=== PATIENT | female | born 1970 | race American Indian/Alaskan Native ===

== ENCOUNTER 2016-06-11 19:16 | Inpatient (IN) | payer MEDICAID ==
--- NOTE | 2016-06-11 19:59 | Emergency Department Report ---
ED Chest Pain HPI - General Chief Complaint: Chest Pain Stated Complaint: CP Time Seen by Provider: 06/11/16 19:44 Source: patient Mode of arrival: Ambulatory Limitations: No Limitations - History of Present Illness Initial Comments: This is a 45-year-old -[place] female who presents to the emergency department by EMS with complaint of chest pain and difficulty swallowing. The patient says she was at [place] today when she began having some midsternal chest pain. This continued but the patient went to another baptism. At the second baptism she tried to eat a sandwich but says that she had trouble swallowing it or it took 5-10 seconds for her to get down. She has a past medical history of HIV, CHF, COPD, insulin-dependent diabetes, hypertension, morbid obesity, and coronary artery disease with ID 3. She says her last heart attack was 5 months ago at a hospital in [place]. She says she had a stress test last but is waiting on the results. She is currently wearing a Holter monitor. She does not have a primary care doctor but has of a government auditor. She cannot her name but says they work in [facility] [place]. She did not take anything for symptoms prior to presentation. When asked that the patient has shortness of breath she says "I always do." She is a former smoker. She denies any illicit drug use. Severity scale (0 -10): 7 - Related Data Home Medications Medication Instructions Recorded Confirmed Last Taken Hydrochlorothiazide [HCTZ] 25 mg PO QDAY 06/16/15 06/11/16 1 Day Ago 25 Lisinopril [Zestril TAB] 40 mg PO QDAY 06/16/15 06/11/16 1 Day Ago 40 amLODIPine [Norvasc] 20 mg PO DAILY 06/16/15 06/11/16 1 Day Ago 10 Previous Rx's Medication Instructions Recorded Last Taken Type Diphenoxylate/Atropine [Lomotil] 1 tab PO QID PRN #20 tablet 06/16/15 1 Day Ago Rx 1 Allergies Allergy/AdvReac Type Severity Reaction Status Date / Time Penicillins Allergy Itching Verified 06/11/16 19:50 [place] score - Ny Score Age > 65: (0) No Aspirin use within the Past 7 Days: (0) No 3 or more CAD Risk Factors: (1) Yes 2 or more Angina events in past 24 hrs: (1) Yes Known CAD with more than 50% Stenosis: (0) No Elevated Cardiac Markers: (0) No ST Deviation Greater than 0.5mm: (0) No [place] Score: 2 ED Review of Systems ROS: Stated complaint: CP Other details as noted in HPI Comment: All other systems reviewed and negative Constitutional: denies: chills, fever Eyes: denies: eye pain, eye discharge, vision change ENT: denies: ear pain, dental pain Respiratory: shortness of breath. denies: cough Cardiovascular: chest pain. denies: edema Gastrointestinal: denies: abdominal pain, nausea, diarrhea Genitourinary: denies: urgency, dysuria, discharge Musculoskeletal: denies: back pain, joint swelling, arthralgia Skin: denies: rash, lesions Neurological: denies: headache, weakness, paresthesias ED Past Medical Hx - Past Medical History Previous Medical History?: Yes Hx Hypertension: Yes Hx Congestive Heart Failure: Yes Hx Diabetes: Yes Hx Asthma: Yes Hx HIV: Yes - Surgical History Past Surgical History?: Yes Additional Surgical History: C-sections X's 3 - Social History Smoking Status: Never Smoker Substance Use Type: None - Medications Home Medications: Home Medications Medication Instructions Recorded Confirmed Last Taken Type Diphenoxylate/Atropine [Lomotil] 1 tab PO QID PRN #20 tablet 06/16/15 06/11/16 1 Day Ago Rx 1 Hydrochlorothiazide [HCTZ] 25 mg PO QDAY 06/16/15 06/11/16 1 Day Ago History 25 Lisinopril [Zestril TAB] 40 mg PO QDAY 06/16/15 06/11/16 1 Day Ago History 40 amLODIPine [Norvasc] 20 mg PO DAILY 06/16/15 06/11/16 1 Day Ago History 10 ED Physical Exam - General Limitations: No Limitations - Other Other exam information: GENERAL: The patient is well-developed well-nourished. HEENT: Normocephalic. Atraumatic. Extraocular motions are intact. Patient has moist mucous membranes. Pupils equal reactive to light bilaterally. NECK: Supple. Trachea is midline. CHEST/LUNGS: Clear to auscultation. There is no respiratory distress noted. Chest pain is not reproducible to palpation of the chest wall. HEART/CARDIOVASCULAR: Regular. There is no tachycardia. There is no gallop rub or murmur. ABDOMEN: Abdomen is soft, nontender. Patient has normal bowel sounds. There is no abdominal distention. Morbidly obese habitus. SKIN: There is no rash. There is no diaphoresis. NEURO: The patient is awake, alert, and oriented. The patient is cooperative. The patient has no focal neurologic deficits. The patient has normal speech and gait. MUSCULOSKELETAL: There is no tenderness or deformity. There is no limitation range of motion. There is no evidence of acute injury.. ED Course Vital Signs 06/11/16 06/11/16 06/11/16 19:43 19:54 19:55 Temperature 98.7 F Pulse Rate 75 71 Respiratory 16 16 18 Rate Blood Pressure 176/73 Blood Pressure 170/82 [Left] O2 Sat by Pulse 98 100 100 Oximetry 06/11/16 06/11/16 06/12/16 21:49 23:00 01:00 Temperature Pulse Rate 73 79 83 Respiratory 21 24 21 Rate Blood Pressure Blood Pressure 152/90 166/80 173/91 [Left] O2 Sat by Pulse 97 97 97 Oximetry ED Medical Decision Making - Lab Data Result diagrams: 06/11/16 20:23 06/11/16 20:23 - EKG Data -: EKG Interpreted by Me EKG shows normal: sinus rhythm, axis (right axis deviation), intervals ( prolongation of QTC), QRS complexes, ST-T waves (T-wave inversions to the inferior leads) Rate: normal - EKG Data When compared to previous EKG there are: previous EKG unavailable Interpretation: other (sinus rhythm, rightward axis, T-wave inversion to the inferior leads, prolongation of QTC) - Radiology Data Radiology results: report reviewed, image reviewed interpreted by me: Chest x-ray does not show any acute process but is a poor image secondary to patient's body habitus. CT angiography of the chest does not show any dissection, aortic aneurysm, pulmonary embolism. There is mediastinal and hilar lymphadenopathy. There is suboptimal inspiration. There is mild pulmonary edema. There are no infiltrates. There are no effusions or pneumothoraces. No gallstones seen. - Medical Decision Making 45-year-old female presents the emergency department with complaint of left- sided chest pain and some shortness breath. Patient has the risk factors of morbid obesity, coronary artery disease with previous ID, hypertension, high cholesterol and diabetes. She is currently wearing a Holter monitor and recently had a stress test but has not been told of the results yet to know that it is negative. Patient's labs have been mostly unremarkable except for a elevated and equivocal d-dimer. So far negative troponins 2. BMP does not show signs of congestive heart failure. EKG shows rightward axis, sinus rhythm , T-wave inversions inferior leads and prolongation of QTC but no ST elevation ID. CT angiography of the chest was done that did not show any pulmonary embolism. There is some mediastinal lymphadenopathy but no masses. No pneumonia or pleural effusions. No pericardial effusion. Patient is still having some discomfort although it is improved. Given aspirin and some morphine for her discomfort. Patient will be admitted to hospital for further evaluation is been accepted for admission by the hospitalist, Dr. Clarke. - Differential Diagnosis ID, PE, CHF, pneumonia Critical Care Time: No Critical care attestation.: If time is entered above; I have spent that time in minutes in the direct care of this critically ill patient, excluding procedure time. ED Disposition Clinical Impression: History of coronary artery disease Hypertension Qualifiers: Hypertension type: essential hypertension Qualified Code(s): I10 - Essential ( primary) hypertension Chest pain Qualifiers: Chest pain type: unspecified Qualified Code(s): R07.9 - Chest pain, unspecified Dyspnea Qualifiers: Dyspnea type: unspecified Qualified Code(s): R06.00 - Dyspnea, unspecified Diabetes mellitus Qualifiers: Diabetes mellitus type: type 2 Diabetes mellitus complication status: with hyperglycemia Morbid obesity Qualifiers: Obesity type: unspecified obesity type Qualified Code(s): E66.01 - Morbid ( severe) obesity due to excess calories Disposition: OP ADMITTED IP TO THIS HOSP Is pt being admited?: Yes Does the pt Need Aspirin: Yes Condition: Stable Instructions: Hypertension (ED), Chest Pain (ED), Diabetes Mellitus Type 2 in Adults (ED) Time of Disposition: 01:47
[2016-06-11 21:11] LABS: Basophils % (Auto) 0.6 % (0.0-1.8); Eosinophils % (Auto) 2.7 % (0.0-4.3); Hematocrit 34.7 % (30.3-42.9); Hemoglobin 10.7 gm/dl (10.1-14.3); Mean Corpuscular HGB Conc 31 % (30-34); Mean Corpuscular Volume 73 fl (79-97); Platelet Count 442 K/mm3 (140-440); Red Blood Count 4.77 M/mm3 (3.65-5.03); Red Cell Distribution Width 17.4 % (13.2-15.2); White Blood Count 8.7 K/mm3 (4.5-11.0)
[2016-06-11 21:12] LABS: Mean Corpuscular Hemoglobin 23 pg (28-32)
[2016-06-11 21:31] LABS: Blood Urea Nitrogen 14 mg/dL (7-17); Carbon Dioxide 28 mmol/L (22-30); Chloride 98.3 mmol/L (98-107); Glucose 154 mg/dL (65-100); Potassium 3.3 mmol/L (3.6-5.0); Sodium 139 mmol/L (137-145)
[2016-06-11 21:42] LABS: Anion Gap 16 mmol/L
[2016-06-11] MEDS ORDERED: K-DUR PO ONE (22:12)
[2016-06-12] MEDS ORDERED: NACL ONE (00:28)
--- NOTE | 2016-06-12 01:35 | Cat Scan Report ---
FINAL REPORT PROCEDURE: CT ANGIO CHEST TECHNIQUE: Computerized tomographic angiography of the chest was performed after the IV injection of iodinated nonionic contrast including image processing. The image data was postprocessed using 2-dimensional multiplanar reformatted (MPR) and 3-dimensional (MIP and/or volume rendered) techniques. HISTORY: CP, elevated dimer COMPARISON: No prior studies are available for comparison. FINDINGS: Heart and pericardium: Heart is enlarged. There is no pericardial effusion.. Thoracic aorta: There is no thoracic aortic aneurysm or dissection.. Pulmonary vasculature: There is no pulmonary embolism.. Lymph nodes: There is mediastinal and hilar lymphadenopathy.. Lungs: There is suboptimal inspiration. There is mild pulmonary edema. There are no infiltrates.. Pleural space: There are no effusions or pneumothoraces.. Musculoskeletal structures: No significant abnormality. Upper abdominal structures: There are gallstones.. IMPRESSION: Heart is enlarged. There is no pericardial effusion.. There is no thoracic aortic aneurysm or dissection.. There is no pulmonary embolism.. There is mediastinal and hilar lymphadenopathy.. There is suboptimal inspiration. There is mild pulmonary edema. There are no infiltrates.. There are no effusions or pneumothoraces.. There are gallstones..
[2016-06-12] MEDS ORDERED: MORPHINE IV ONE (01:44)
[2016-06-12] MEDS ORDERED: BABY ASPIRIN PO ONE (01:45)
--- NOTE | 2016-06-12 03:29 | History and Physical Report ---
History of Present Illness Date of examination: 06/12/16 Date of admission: 06/12/16 02:38 History of present illness: 45-year-old woman history of hypertension, diabetes, CHF, HIV, COPD, obesity, recent MD comes emergency room with complaints of chest pain was started yesterday. Pain is in the upper chest which she is unable to describe, constant , intensity 5/10, cannot identify exacerbating or relieving factors. She admits to shortness of breath, no nausea vomiting, diaphoresis or palpitation. She had a stress test done on with her sustainability project coordinator, she does not know the results Patient denies cough, abdominal pain, hematochezia, dysuria, frequency, focal weakness, dysarthria, fever chills, polydipsia polyuria, hot or cold intolerance , easy bruisability, or rash or bleeding from mucosal membrane, rhinorrhea, epistaxis, earache, tinnitus, blurry vision, eye discharge, anxiety, depression. Other review of systems negative PAST SURGICAL HISTORY: 2 SOCIAL HISTORY: Denies alcohol, tobacco, drugs FAMILY HISTORY: Hypertension, diabetes Medications and Allergies Allergies Allergy/AdvReac Type Severity Reaction Status Date / Time Penicillins Allergy Itching Verified 06/11/16 19:50 Home Medications Medication Instructions Recorded Confirmed Last Taken Type Diphenoxylate/Atropine [Lomotil] 1 tab PO QID PRN #20 tablet 06/16/15 06/11/16 1 Day Ago Rx 1 Hydrochlorothiazide [HCTZ] 25 mg PO QDAY 06/16/15 06/11/16 1 Day Ago History 25 Lisinopril [Zestril TAB] 40 mg PO QDAY 06/16/15 06/11/16 1 Day Ago History 40 amLODIPine [Norvasc] 20 mg PO DAILY 06/16/15 06/11/16 1 Day Ago History 10 Exam - Physical Exam Narrative exam: Gen. appearance: Patient lying in bed, no apparent distress HEENT: Normocephalic, atraumatic, pupils equally round and reactive to light, extraocular movement intact, and no sclericterus,. No JVD or thyromegaly or nodule,neck supple, no carotid bruit ,mucous membranes moist, no exudate or erythema Heart: S1, S2, regular rate and rhythm Lungs: Clear to auscultation bilaterally, breathing comfortable Abdomen: Positive bowel sounds, nontender, nondistended, no organomegaly Extremity: No edema, cyanosis, clubbing Skin: No rash, nodules, warm, dry Neuro: Oriented 3, cranial nerves II-12 intact, speech is fluent, motor and sensory intact - Constitutional Vitals: Temp Pulse Resp BP Pulse Ox 98.7 F 83 21 173/91 97 06/11/16 19:43 06/12/16 01:00 06/12/16 01:00 06/12/16 01:00 06/12/16 01:00 Results - Labs CBC & Chem 7: 06/11/16 20:23 06/11/16 20:23 - Imaging and Cardiology EKG: image reviewed Chest x-ray: image reviewed CT scan - chest: report reviewed Assessment and Plan Unstable angina Coronary artery disease Hypertension Diabetes type 2 COPD CHF, stable HIV Morbid obesity Admits medicine Check cardiac enzymes, consult cardiology Continue outpatient medications Obtain records from sustainability project coordinator Start Dvt prophylaxis
[2016-06-12] MEDS ORDERED: BABY ASPIRIN ONE (04:01)
[2016-06-12] MEDS ORDERED: DULCOLAX PR PRN (08:29)
[2016-06-12] MEDS ORDERED: TYLENOL PO PRN (08:29)
[2016-06-12] MEDS ORDERED: MILK OF MAGNESIA PO PRN (08:29)
[2016-06-12] MEDS ORDERED: ZOFRAN IV PRN (08:29)
[2016-06-12] MEDS ORDERED: MORPHINE IV PRN (08:29)
--- NOTE | 2016-06-12 08:47 | XRay Report ---
Portable AP chest: There is enlargement of the cardiac contour. There is no obvious vascular congestion and the lungs are clear of any overt infiltrate or nodule. No prior study for comparison. Impression: Cardiomegaly.
[2016-06-12] MEDS ORDERED: LOVENOX SUB-Q SCH (10:00)
--- NOTE | 2016-06-12 10:08 | Progress Note ---
Assessment and Plan - Patient Problems (1) Chest pain Current Visit: Yes Status: Acute Qualifiers: Chest pain type: unspecified Qualified Code(s): R07.9 - Chest pain, unspecified Plan to address problem: Patient admitted with chest pain. Troponin 2 negative. Awaiting cardiology input (2) Hypertension Current Visit: Yes Status: Acute Qualifiers: Hypertension type: essential hypertension Qualified Code(s): I10 - Essential (primary) hypertension Plan to address problem: Continue current management. Continue amlodipine (3) Elevated d-dimer Current Visit: Yes Status: Acute Plan to address problem: Patient had CTA of the chest that was normal History Interval history: Patient awake alert in bed with no pain Hospitalist Physical - Constitutional Vitals: Temp Pulse Resp BP Pulse Ox 98.5 F 70 20 171/92 98 06/12/16 09:55 06/12/16 09:55 06/12/16 09:55 06/12/16 09:55 06/12/16 09:55 General appearance: Present: no acute distress - EENT Eyes: Present: PERRL, EOM intact ENT: hearing intact, clear oral mucosa - Neck Neck: Present: supple, normal ROM - Respiratory Respiratory effort: normal Respiratory: bilateral: CTA - Cardiovascular Rhythm: regular Heart Sounds: Present: S1 & S2 - Abdominal General gastrointestinal: soft, non-tender, non-distended, normal bowel sounds - Psychiatric Psychiatric: appropriate mood/affect, intact judgment & insight - Neurologic Neurologic: CNII-XII intact, moves all extremities Results - Labs CBC & Chem 7: 06/11/16 20:23 06/11/16 20:23 Labs: Laboratory Last Values WBC 8.7 K/mm3 (4.5-11.0) 06/11/16 20:23 RBC 4.77 M/mm3 (3.65-5.03) 06/11/16 20:23 Hgb 10.7 gm/dl (10.1-14.3) 06/11/16 20:23 Hct 34.7 % (30.3-42.9) 06/11/16 20:23 MCV 73 fl (79-97) L 06/11/16 20:23 MCH 23 pg (28-32) L 06/11/16 20:23 MCHC 31 % (30-34) 06/11/16 20:23 RDW 17.4 % (13.2-15.2) H 06/11/16 20:23 Plt Count 442 K/mm3 (140-440) H 06/11/16 20:23 Lymph % (Auto) 26.3 % (13.4-35.0) 06/11/16 20:23 [place] % (Auto) 5.4 % (0.0-7.3) 06/11/16 20:23 Eos % (Auto) 2.7 % (0.0-4.3) 06/11/16 20:23 Baso % (Auto) 0.6 % (0.0-1.8) 06/11/16 20:23 Lymph # 2.3 K/mm3 (1.2-5.4) 06/11/16 20:23 [place] # 0.5 K/mm3 (0.0-0.8) 06/11/16 20:23 Eos # 0.2 K/mm3 (0.0-0.4) 06/11/16 20: Baso # 0.1 K/mm3 (0.0-0.1) 06/11/16 20:23 Seg Neutrophils % 65.0 % (40.0-70.0) 06/11/16 20:23 Seg Neutrophils # 5.7 K/mm3 (1.8-7.7) 06/11/16 20:23 D-Dimer 329.25 ng/mlDDU (0-234) H 06/11/16 23:03 Sodium 139 mmol/L (137-145) 06/11/16 20:23 Potassium 3.3 mmol/L (3.6-5.0) L 06/11/16 20:23 Chloride 98.3 mmol/L (98-107) 06/11/16 20:23 Carbon Dioxide 28 mmol/L (22-30) 06/11/16 20:23 Anion Gap 16 mmol/L 06/11/16 20:23 BUN 14 mg/dL (7-17) 06/11/16 20:23 Creatinine 0.8 mg/dL (0.7-1.2) 06/11/16 20:23 Estimated GFR > 60 ml/min 06/11/16 20:23 BUN/Creatinine Ratio 17.50 % 06/11/16 20:23 Glucose 154 mg/dL (65-100) H 06/11/16 20:23 Calcium 9.0 mg/dL (8.4-10.2) 06/11/16 20:23 Troponin T < 0.010 ng/mL (0.00-0.029) 06/12/16 01:50 NT-Pro-B Natriuret Pep 339.0 pg/mL (0-450) 06/11/16 20:23
[2016-06-12] MEDS: LOVENOX SUB-Q SCH (11:10)
[2016-06-12] MEDS: NORVASC PO SCH (11:11)
[2016-06-12] MEDS: ZESTRIL PO SCH (11:12)
[2016-06-12] MEDS: HCTZ PO SCH (11:13)
--- NOTE | 2016-06-12 14:33 | Consultation ---
History of Present Illness Consult date: 06/12/16 Consult reason: chest pain History of present illness: 45-year-old woman who presents to the hospital with chest pain. Her chest pain is atypical, sensation of pins sticking to her chest wall. There is no exertional component, and no associated features. She is currently undergoing workup for chest pain and palpitations as an outpatient on the orders of her primary district manager major accounts sales who is located [facility]. She had a stress test there last week, and is currently on extended event monitoring. Workup here so far, is benign, with negative EKG and negative cardiac enzymes. Past History Past Medical History: HIV/AIDS, hypertension Medications and Allergies Allergies Allergy/AdvReac Type Severity Reaction Status Date / Time Penicillins Allergy Itching Verified 06/11/16 19:50 Home Medications Medication Instructions Recorded Confirmed Last Taken Type Diphenoxylate/Atropine [Lomotil] 1 tab PO QID PRN #20 tablet 06/16/15 06/11/16 1 Day Ago Rx 1 Hydrochlorothiazide [HCTZ] 25 mg PO QDAY 06/16/15 06/11/16 1 Day Ago History 25 Lisinopril [Zestril TAB] 40 mg PO QDAY 06/16/15 06/11/16 1 Day Ago History 40 amLODIPine [Norvasc] 20 mg PO DAILY 06/16/15 06/11/16 1 Day Ago History 10 Active Meds: Active Medications Acetaminophen (Tylenol) 650 mg PO Q4H PRN PRN Reason: Pain MILD(1-3)/Fever >100.5/LING Amlodipine Besylate (Norvasc) 20 mg PO DAILY [facility] Last Admin: 06/12/16 11:11 Dose: 20 mg Bisacodyl (Dulcolax) 10 mg NC QDAY PRN PRN Reason: Constipation unrelieved by MOM Enoxaparin Sodium (Lovenox) 40 mg SUB-Q QDAY@1000 [facility] Last Admin: 06/12/16 11:10 Dose: 40 mg Hydrochlorothiazide (Hctz) 25 mg PO QDAY [facility] Last Admin: 06/12/16 11:13 Dose: 25 mg Lisinopril (Zestril) 40 mg PO QDAY [facility] Last Admin: 06/12/16 11:12 Dose: 40 mg Magnesium Hydroxide (Milk Of Magnesia) 30 ml PO Q4H PRN PRN Reason: Constipation Morphine Sulfate (Morphine) 2 mg IV Q4H PRN PRN Reason: Pain, Moderate (4-6) Ondansetron HCl (Zofran) 4 mg IV Q8H PRN PRN Reason: N/V unrelieved by Reglan Review of Systems Cardiovascular: chest pain, palpitations, no orthopnea, no rapid/irregular heart beat, no edema, no syncope, no lightheadedness, no shortness of breath Physical Examination Vital Signs Temp Pulse Resp BP Pulse Ox 98.7 F 75 16 176/73 98 06/11/16 19:43 06/11/16 19:43 06/11/16 19:43 06/11/16 19:43 06/11/16 19:43 General appearance: no acute distress HEENT: Positive: PERRL Neck: Positive: neck supple Cardiac: Positive: Reg Rate and Rhythm Lungs: Positive: Decreased Breath Sounds Neuro: Positive: Grossly Intact Abdomen: Positive: Soft Female genitourinary: deferred Skin: Positive: Clear Extremities: Absent: edema Results 06/11/16 20:23 06/11/16 20:23 EKG interpretations - Telemetry EKG Rhythm: Sinus Rhythm Assessment and Plan - Patient Problems (1) Chest pain Current Visit: Yes Status: Acute Qualifiers: Chest pain type: unspecified Qualified Code(s): R07.9 - Chest pain, unspecified Plan to address problem: Chest pain is atypical, ECG and cardiac enzymes are negative. Recommend uptake in the report of recent outpatient stress test, and if negative , no further cardiac workup is indicated for atypical chest pain.
[2016-06-12] MEDS ORDERED: FLUARIX QUAD 2016-2017(36 MOS+) IM ONE (16:16)
--- NOTE | 2016-06-13 08:38 | Admit Criteria Form ---
Admission Criteria Documentation: CHEST PAIN Clinical Indications for Admission to Inpatient Care (Place 'X' for any and all applicable criteria): Admission is indicated for chest pain and ANY ONE of the following(1)(2)(3)(4)(5 ): [ ]I. Angina with acute coronary syndrome (Also use Myocardial Infarction or Angina guideline) [ ]II. Hemodynamic instability [X ]III. Angina needing acute intervention as indicated by ALL of the following (11)(12): [X ]a) Unstable angina is present as indicated by angina that is ANY ONE of the following: [ ]i) New onset [ ]ii) Nocturnal [X ]iii) Prolonged at rest [ ]iv) Progressive [X ]b) Angina warrants acute intervention as indicated by ANY ONE of the following: [ ]i) Recurrent angina (e.g, not responding as previously to treatment) [X ]ii) Angina at rest or with low-level activities despite initial medical therapy [ ]iii) New or presumably new ST-segment depression on ECG [ ]iv) Signs or symptoms of heart failure (eg, dyspnea, pulmonary edema) [ ]v) New or worsening mitral regurgitation [ ]vi) Hemodynamic instability [ ]vii) Dangerous arrhythmia (eg, sustained ventricular tachycardia) [ ]viii) History of percutaneous coronary intervention within 6 months [ ]ix) History of coronary artery bypass graft surgery [X]x) [place] risk score of 2 or greater[A] [X]xi) History of Diabetes(14) [ ]xii) High-risk cardiac ischemia findings on noninvasive testing (e.g, echocardiogram, treadmill testing, nuclear scan) [ ]xiii) Chronic renal insufficiency (ie, estimated GFR less than 60 mL/min/1.732m) [ ]xiv) Left ventricular ejection fraction less than 40% [ ]IV. Evidence of NE (eg, cardiac biomarkers positive, ST-segment elevation on ECG) also use Myocardial Infarction Criteria Form. [ ]V. Pulmonary edema [ ]. Respiratory distress [ ]VII. Chest pain indicative of serious diagnosis other than coronary artery disease (eg, aortic dissection) [ ]VIII. Contraindications and/or Inappropriate clinical situations for Observational Care in patients with Chest Pain, when ANY ONE of the following is required: [ ]a) Patient with risk factor for pulmonary embolism, acute coronary syndrome and myocardial infarction (18) [ ]b) Patient with Pulmonary embolism require an average LOS of 4.3 days, therefore emergency department observation management is inappropriate 18,23 [ ]c) Painful condition/s in the elderly, have the highest rate of recidivism after emergency department observation management (10.8%) 20,21,22 [ ]d) Elevated cardiac biomarker requires intensive and exhaustive care (19) [ ]IX. General contraindications and/or Inappropriate clinical situations for Observational Care in patients with Chest Pain, when ANY ONE of the following is required: [ ]a) Prediction of prolongation of LOS based on ANY ONE of the following may be considered as a contraindication for observational care 2, 3, 4, 5, 6, 7, 8, 9, 10, 11 [ ]i) Age > 65 yrs. [ ]ii) Patient arriving by ambulance [ ]iii) Patient with high acuity [ ]iv) Patient requiring vital sign monitoring [ ]v) Patient on IV medication [ ]b) Systolic blood pressures 180mmHg 3,12 [ ]c) Patient with altered mental status including delirium and other alteration of consciousness, (3) [ ]d) Patient whose discharge disposition will be to a jail home or rehabilitation home should not be managed in Emergency Department Observation Unit. CMS rule requires 3 days hospital stay before such placement. 3,13 [ ]e) Patient with failure to thrive due to broad array of etiologies 3,16,17 [ ]f) Inability to ambulate 3,14 Extended stay beyond goal length of stay may be needed for (1)(28): [ ]a) Specific condition diagnosed after evaluation (eg, pulmonary embolism, aortic dissection) [ ]b) Unstable angina [ ]c) Continued suspicion of acute coronary syndrome with inability to complete needed cardiac evaluation (eg, patient clinically unable to undergo stress testing) [ ]d) Myocardial infarction (Contents from ANGINA and CHEST PAIN clinical indications for admission to inpatient care have been integrated in this form) The original [employer] content created by [employer] has been revised. The portions of the content which have been revised are identified through the use of italic text or in bold, and [employer] has neither reviewed nor approved the modified material. All other unmodified content is copyright [employer]. Please see references footnoted in the original [employer] edition 2016 Admission Criteria Met: Yes
[2016-06-13 08:55] LABS: Basophils % (Auto) 0.9 % (0.0-1.8); Eosinophils % (Auto) 4.5 % (0.0-4.3); Hematocrit 34.3 % (30.3-42.9); Hemoglobin 10.7 gm/dl (10.1-14.3); Mean Corpuscular HGB Conc 31 % (30-34); Mean Corpuscular Volume 73 fl (79-97); Platelet Count 442 K/mm3 (140-440); Red Blood Count 4.71 M/mm3 (3.65-5.03); Red Cell Distribution Width 17.4 % (13.2-15.2); White Blood Count 6.8 K/mm3 (4.5-11.0)
[2016-06-13 09:06] LABS: Mean Corpuscular Hemoglobin 23 pg (28-32)
[2016-06-13 09:08] LABS: Alanine Aminotransferase 12 units/L (7-56); Albumin 3.6 g/dL (3.9-5); Albumin/Globulin Ratio 0.8 %; Alkaline Phosphatase 81 units/L (35-129); Anion Gap 15 mmol/L; BUN/Creatinine Ratio 13.33; Bilirubin,Total 0.3 mg/dL (0.1-1.2); Blood Urea Nitrogen 12 mg/dL (7-17); Calcium 9.2 mg/dL (8.4-10.2); Carbon Dioxide 29 mmol/L (22-30); Chloride 94.7 mmol/L (98-107); Glucose 144 mg/dL (65-100); Potassium 3.8 mmol/L (3.6-5.0); Sodium 135 mmol/L (137-145)
[2016-06-13] MEDS: ZESTRIL PO SCH (10:51)
[2016-06-13] MEDS: LOVENOX SUB-Q SCH (10:51)
[2016-06-13] MEDS: HCTZ PO SCH (10:56)
[2016-06-13] MEDS: NORVASC PO SCH (10:57)
--- NOTE | 2016-06-13 11:23 | Discharge Summary ---
Providers - Providers Date of Admission: 06/12/16 02:38 Date of discharge: 06/13/16 Attending physician: MAGUE VALENCIA 06/12/16 08:29 Consult to Physician [CONS] Routine Consulting Provider: WM WINCHESTER Reason For Exam: cp Notified:: traveling secretary pl call Primary care physician: [employer] Hospitalization Reason for admission: atypical chest pain Condition: Stable Pertinent studies: CTA of the chest-no PE Hospital course: Miss Solorio is a 45-year-old female who presented to the emergency room with atypical chest pain. Acute myocardial infarction was ruled out based on negative cardiac enzymes. Her chest pain resolved prior to discharge. It was felt that she had costochondritis. Her stress test obtained done last week, started was negative. She was seen by the tank officer and cleared for discharge. Disposition: DISCHARGED TO HOME OR SELFCARE Time spent for discharge: 31 minutes - Discharge Diagnoses (1) Chest pain Status: Acute Qualifiers: Chest pain type: unspecified Qualified Code(s): R07.9 - Chest pain, unspecified (2) History of coronary artery disease Status: Chronic (3) Hypertension Status: Chronic Qualifiers: Hypertension type: essential hypertension Qualified Code(s): I10 - Essential (primary) hypertension (4) Costochondral chest pain Status: Acute Core Measure Documentation - Palliative Care Palliative Care/ Comfort Measures: Not Applicable - Core Measures Any of the following diagnoses?: none Exam - Constitutional Vitals: Temp Pulse Resp BP Pulse Ox 98.2 F 60 20 148/79 94 06/13/16 09:25 06/13/16 10:57 06/13/16 09:25 06/13/16 10:57 06/13/16 09:25 General appearance: Present: no acute distress, well-nourished, obese (morbid) - EENT Eyes: Present: PERRL, EOM intact. Absent: scleral icterus, conjunctival injection ENT: hearing intact, clear oral mucosa, no oropharyngeal erythema, no poor dentition - Neck Neck: Present: supple, normal ROM. Absent: enlarged thyroid, masses or JVD - Respiratory Respiratory effort: normal, other (costochondral tenderness ) Respiratory: negative: diminished, rales, rhonchi, wheezing - Cardiovascular Rhythm: regular Heart Sounds: Present: S1 & S2. Absent: gallop - Extremities Extremities: no ischemia, pulses intact, pulses symmetrical, No edema - Abdominal General gastrointestinal: Present: soft, non-tender, non-distended, normal bowel sounds - Rectal Rectal Exam: deferred - Integumentary Integumentary: Present: clear - Musculoskeletal Musculoskeletal: strength equal bilaterally - Psychiatric Psychiatric: appropriate mood/affect, intact judgment & insight, cooperative - Neurologic Neurologic: CNII-XII intact, moves all extremities Plan Activity: no restrictions Diet: low fat, low cholesterol, low salt Additional Instructions: Follow-up with tank officer as an outpatient Follow up with: PRIMARY CARE, [Primary Care Provider] - 3-5 Days
[2016-06-13 12:40] VITALS: BP 123/88
--- NOTE | 2016-06-13 13:58 | Progress Note ---
Assessment and Plan - Patient Problems (1) Chest pain Current Visit: Yes Status: Acute Qualifiers: Qualified Code(s): R07.9 - Chest pain, unspecified Plan to address problem: atypical Persantine stress thallium done 1wk ago at [facility], reports no ischemia No further cardiac workup indicated. Ok, cardiac mackenzie, for discharge home. F/U with primary community board member within 1wk. Subjective Date of service: 06/13/16 Interval history: Patient denies chest pain. Wants to go home. Objective Vital Signs Temp Pulse Pulse Pulse Pulse Resp BP 06/13/16 12:39 98.4 F 75 20 06/13/16 10:57 60 148/79 06/13/16 10:51 60 148/79 06/13/16 10:00 06/13/16 09:25 98.2 F 64 20 06/13/16 04:00 98.5 F 60 18 06/13/16 01:17 64 06/13/16 00:15 98.4 F 63 65 69 20 06/12/16 20:00 98.2 F 65 18 06/12/16 17:52 98.2 F 67 20 BP Pulse Ox 06/13/16 12:39 123/88 97 06/13/16 10:57 06/13/16 10:51 06/13/16 10:00 97 06/13/16 09:25 144/81 94 06/13/16 04:00 148/79 98 06/13/16 01:17 06/13/16 00:15 122/57 98 06/12/16 20:00 152/83 97 06/12/16 17:52 133/89 96 - Physical Examination General: No Apparent Distress HEENT: Positive: PERRL Neck: Positive: neck supple Cardiac: Positive: Reg Rate and Rhythm Lungs: Positive: Decreased Breath Sounds Neuro: Positive: Grossly Intact Extremities: Absent: edema - Labs and Meds Cardiac Enzymes 06/13/16 Range/Units 08:28 AST 12 (5-40) units/L CBC 06/13/16 Range/Units 08:28 WBC 6.8 (4.5-11.0) K/mm3 RBC 4.71 (3.65-5.03) M/mm3 Hgb 10.7 (10.1-14.3) gm/dl Hct 34.3 (30.3-42.9) % Plt Count 442 H (140-440) K/mm3 Lymph # 2.6 (1.2-5.4) K/mm3 [place] # 0.5 (0.0-0.8) K/mm3 Eos # 0.3 (0.0-0.4) K/mm3 Baso # 0.1 (0.0-0.1) K/mm3 Comprehensive Metabolic Panel 06/13/16 Range/Units 08:28 Sodium 135 L (137-145) mmol/L Potassium 3.8 (3.6-5.0) mmol/L Chloride 94.7 L (98-107) mmol/L Carbon Dioxide 29 (22-30) mmol/L BUN 12 (7-17) mg/dL Creatinine 0.9 (0.7-1.2) mg/dL Glucose 144 H (65-100) mg/dL Calcium 9.2 (8.4-10.2) mg/dL AST 12 (5-40) units/L ALT 12 (7-56) units/L Alkaline Phosphatase 81 (35-129) units/L Total Protein 8.0 (6.3-8.2) g/dL Albumin 3.6 L (3.9-5) g/dL - Imaging and Cardiology EKG: image reviewed
[2016-06-13] MEDS ORDERED: FLUARIX QUAD 2016-2017(36 MOS+) IM ONE (15:00)
== END 2016-06-13 15:40 | disposition home or self-care (01) | DRG 205 ==
LOC: ED 19:16 → 4A 06-12 02:38
PROVIDERS: ADMIT Internal Medicine; ATTEND Hospitalist
DX: M94.0 Chondrocostal junction syndrome [Tietze] (principal); B20 Human immunodeficiency virus [HIV] disease; E66.01 Morbid (severe) obesity due to excess calories; J44.9 Chronic obstructive pulmonary disease, unspecified; I11.0 Hypertensive heart disease with heart failure; I50.9 Heart failure, unspecified; I25.110 Atherosclerotic heart disease of native coronary artery with unstable angina pectoris; E11.9 Type 2 diabetes mellitus without complications; J45.909 Unspecified asthma, uncomplicated; Z98.891 History of uterine scar from previous surgery; Z83.3 Family history of diabetes mellitus; Z82.49 Family history of ischemic heart disease and other diseases of the circulatory system; Z68.44 Body mass index [BMI] 60.0-69.9, adult; Z88.0 Allergy status to penicillin
CPT/HCPCS: 36415; 71010; 71275; 80048; 80053; 82962; 83880; 84484; 85025; 85379; 90686; 93005; 93010; J1650; Q9967

== ENCOUNTER 2017-04-13 07:17 | Emergency (ER) | payer MEDICAID, SELFPAY ==
[2017-04-13 07:53] LABS: Basophils % (Auto) 1.1 % (0.0-1.8); Eosinophils % (Auto) 0.2 % (0.0-4.3); Hematocrit 36.2 % (30.3-42.9); Hemoglobin 11.7 gm/dl (10.1-14.3); Mean Corpuscular HGB Conc 32 % (30-34); Mean Corpuscular Hemoglobin 23 pg (28-32); Mean Corpuscular Volume 72 fl (79-97); Platelet Count 337 K/mm3 (140-440); Red Cell Distribution Width 17.9 % (13.2-15.2); White Blood Count 12.2 K/mm3 (4.5-11.0)
[2017-04-13 08:08] LABS: Anion Gap 19 mmol/L; BUN/Creatinine Ratio 12; Blood Urea Nitrogen 11 mg/dL (7-17); Carbon Dioxide 24 mmol/L (22-30); Chloride 101.3 mmol/L (98-107); Glucose 156 mg/dL (65-100); Potassium 3.3 mmol/L (3.6-5.0); Sodium 141 mmol/L (137-145)
[2017-04-13] MEDS ORDERED: NITROSTAT SL ONE ×2 (08:10→11:45)
[2017-04-13] MEDS ORDERED: TYLENOL PO ONE (08:10)
[2017-04-13] MEDS ORDERED: BABY ASPIRIN PO ONE (08:10)
[2017-04-13] MEDS ORDERED: NACL 0.9% 500 ML 500 ML IV ONE (08:10)
[2017-04-13 08:24] VITALS: BP 133/66
--- NOTE | 2017-04-13 08:26 | XRay Report ---
AP CHEST: HISTORY: chest pain Compared to 09/26/16. There is significant improvement in CHF since the previous exam. Mild cardiomegaly and central pulmonary venous congestion persists on today's exam. No evidence for consolidation, pleural effusion or pneumothorax. IMPRESSION: Cardiomegaly and pulmonary venous congestion but no CHF.
[2017-04-13] MEDS ORDERED: TYLENOL #3 PO ONE (11:45)
--- NOTE | 2017-04-13 11:51 | Emergency Department Report ---
HPI - General Chief Complaint: Chest Pain Time Seen by Provider: 04/13/17 07:56 - HPI HPI: The patient a 46-year-old female presents for evaluation of chest pain. The patient reports right chest pain for the past one week, constant since last night, 8 hours prior to my evaluation, 8/10 in severity, sharp in quality. The patient denies fever, trauma to the chest wall, cough, dyspnea, hemoptysis, unilateral leg swelling, oral contraceptive use, recent immobilization, history of DVT or PE, recent cancer. ED Past Medical Hx - Past Medical History Previous Medical History?: Yes Hx Hypertension: Yes Hx Congestive Heart Failure: Yes Hx Diabetes: Yes Hx Psychiatric Treatment: Yes (bi-polar) Hx Asthma: Yes Hx HIV: Yes - Surgical History Past Surgical History?: Yes Additional Surgical History: C-sections X's 3 - Social History Smoking Status: Current Every Day Smoker Substance Use Type: Cocaine - Medications Home Medications: Home Medications Medication Instructions Recorded Confirmed Last Taken Type Elviteg/Cob/Emtri/Tenofo Disop 1 each PO DAILY 09/26/16 09/26/16 09/25/16 History [Stribild Tablet] Hydrochlorothiazide [HCTZ] 25 mg PO QDAY #30 tablet 09/28/16 Unknown Rx amLODIPine [Norvasc] 20 mg PO DAILY #30 tablet 09/28/16 Unknown Rx ED Review of Systems ROS: Stated complaint: CHEST PAIN Other details as noted in HPI Constitutional: denies: fever ENT: denies: throat or neck pain Respiratory: denies: cough reports shortness of breath Cardiovascular: denies: chest pain Endocrine: denies unexplained weight loss or gain Gastrointestinal: denies: abdominal pain, nausea Genitourinary: denies: dysuria Musculoskeletal: denies: leg swelling Skin: denies: rash Neurological: denies: headache Hematological/Lymphatic: denies: easy bleeding or easy bruising Psych: denies sadness or hopelessness Physical Exam - Physical Exam Vital Signs: Vital Signs 04/13/17 04/13/17 04/13/17 07:45 08:24 10:08 Temperature 98.7 F Pulse Rate 83 Respiratory 29 H 29 H 18 Rate Blood Pressure 133/66 [Left] O2 Sat by Pulse 97 97 Oximetry Physical Exam: General: well-nourished, well-developed, no acute distress Head: Normocephalic, atraumatic Eyes: normal sclera ENT: Mucous membranes are pale and dry Neck: No neck stiffness, no cervical adenopathy Respiratory: Breath sounds equal bilaterally, no wheezing, rales, or rhonchi Cardio: S1 and S2 present, no murmurs, rubs, gallops, capillary refill is delayed Abdomen: Normoactive bowel sounds, soft abdomen, no rigidity, no guarding or rebound tenderness Chest WALL/Back: No tenderness to palpation of the chest wall, no CVA tenderness with percussion Musc: No pitting edema Skin: No rash Neuro: no facial drooping, normal speech Psych: Normal affect ED Course Vital Signs 04/13/17 04/13/17 04/13/17 07:45 08:24 10:08 Temperature 98.7 F Pulse Rate 83 Respiratory 29 H 29 H 18 Rate Blood Pressure 133/66 [Left] O2 Sat by Pulse 97 97 Oximetry ED Medical Decision Making - Lab Data Result diagrams: 04/13/17 07:39 04/13/17 07:39 - Medical Decision Making The patient was seen and examined by myself. The patient is placed on a cardiac catheterization technician and continuous pulse ox. On initial evaluation, the patient was found to be in no distress. EKG was negative for findings suggestive of acute cardiac infarct. Labs and imaging are obtained. The patient is given Tylenol for her chest pain. Chest x-ray is negative for pneumothorax, focal consolidation, pulmonary vascular congestion, pleural effusion, or other obvious acute cardiopulmonary disease process. Lab results were non-concerning including levels of troponin, WBC, hemoglobin, hematocrit, electrolytes, renal function. The patient was reevaluated and reported that their symptoms were markedly improved. As the patient has a [place] risk score less than 2, and a well 's score less than 2, the patient is at low risk of ACS or pulmonary emboli etiology of their symptoms. The patient is stable for discharge with outpatient follow-up. The patient is given follow-up and return instructions. The patient expressed understanding and agreed with the plan. The patient is discharged in stable condition. Critical care attestation.: If time is entered above; I have spent that time in minutes in the direct care of this critically ill patient, excluding procedure time. ED Disposition Clinical Impression: Acute chest pain CHF (congestive heart failure) Qualifiers: Congestive heart failure type: systolic Congestive heart failure chronicity: chronic Qualified Code(s): I50.22 - Chronic systolic (congestive) heart failure Disposition: TO HOME OR SELFCARE Is pt being admited?: No Does the pt Need Aspirin: No Condition: Stable Instructions: Heart Failure (ED), Chest Pain (ED) Referrals: PRIMARY CARE, [Primary Care Provider] - 3-5 Days Time of Disposition: 11:47
== END 2017-04-13 13:32 | disposition home or self-care (01) ==
LOC: ED 07:17
DX: I50.22 Chronic systolic (congestive) heart failure (principal); R07.9 Chest pain, unspecified; I10 Essential (primary) hypertension; I50.9 Heart failure, unspecified; E11.9 Type 2 diabetes mellitus without complications; J45.909 Unspecified asthma, uncomplicated; F17.200 Nicotine dependence, unspecified, uncomplicated; F14.10 Cocaine abuse, uncomplicated
CPT/HCPCS: 36415; 71010; 80048; 84484; 84703; 85025; 93005; 93010; 96360; 99285; J7040

== ENCOUNTER 2019-01-20 14:39 | Emergency (ER) | payer MEDICAID, SELFPAY ==
--- NOTE | 2019-01-20 15:16 | Emergency Department Report ---
Blank Doc - Documentation Documentation: 48-year-old female that presents with nausea and vomiting. Denies any abdominal pain. This initial assessment/diagnostic orders/clinical plan/treatment(s) is/are subject to change based on patient's health status, clinical progression and re- assessment by fellow clinical providers in the ED. Further treatment and workup at subsequent clinical providers discretion. Patient/guardians urged not to elope from the ED as their condition may be serious if not clinically assessed and managed. Initial orders include: 1- Patient sent to [facility] for further evaluation and treatment 2- labs
[2019-01-20 15:36] LABS: Basophils % (Auto) 0.6 % (0.0-1.8); Eosinophils # (Auto) 0.2 K/mm3 (0.0-0.4); Eosinophils % (Auto) 2.8 % (0.0-4.3); Hematocrit 38.7 % (30.3-42.9); Hemoglobin 12.7 gm/dl (10.1-14.3); Lymphocytes # (Auto) 2.2 K/mm3 (1.2-5.4); Lymphocytes % (Auto) 31.5 % (13.4-35.0); Mean Corpuscular HGB Conc 33 % (30-34); Mean Corpuscular Volume 85 fl (79-97); Monocytes # (Auto) 0.6 K/mm3 (0.0-0.8); Monocytes % (Auto) 8.3 % (0.0-7.3); Platelet Count 336 K/mm3 (140-440); Red Blood Count 4.59 M/mm3 (3.65-5.03); Red Cell Distribution Width 15.1 % (13.2-15.2)
[2019-01-20 15:59] LABS: Alanine Aminotransferase 18 units/L (7-56); Albumin 3.7 g/dL (3.9-5); BUN/Creatinine Ratio 10; Blood Urea Nitrogen 9 mg/dL (7-17); Calcium 9.1 mg/dL (8.4-10.2); Hemolysis Index 18
[2019-01-20 16:19] LABS: Bilirubin,Urine NEG (Negative); Blood,Urine NEG (Negative); Color,Urine Yellow (Yellow); Protein,Urine <15 mg/dL mg/dL (Negative); Urobilinogen,Urine < 2.0 mg/dL (<2.0); WBC,Urine < 1.0 /HPF (0.0-6.0)
[2019-01-20] MEDS ORDERED: K-DUR PO ONE (18:35)
[2019-01-20] MEDS ORDERED: BENTYL IM ONE (18:35)
[2019-01-20] MEDS ORDERED: NACL 0.9% 500 ML 500 ML IV ONE (18:35)
[2019-01-20] MEDS ORDERED: ZOFRAN IV ONE (18:35)
[2019-01-20] MEDS ORDERED: HumuLIN R SUB-Q ONE (18:46)
[2019-01-20 18:50] VITALS: BP 107/48
--- NOTE | 2019-01-20 19:33 | Emergency Department Report ---
ED General Adult HPI - General Chief complaint: Dyspnea/Respdistress Stated complaint: VOMITING/KOFFI/POSSIBLY Time Seen by Provider: 01/20/19 15:16 Source: patient Mode of arrival: Ambulatory Limitations: No Limitations - History of Present Illness Initial comments: Patient is a 48-year-old female presents to the emergency room with complaints o f nausea and vomiting that began a week ago. She has approximately 2 episodes of emesis per day. The patient states she had diarrhea a few days ago but it has since resolved. She states she is concerned that she is . She denies any abdominal pain, urinary symptoms, fever, chest pain. Sensation states she has chronic exertional shortness of breath which she states feels like it is at baseline. States her last menstrual cycle was December 12. past medical history of HIV, high blood pressure, diabetes, asthma, CHF. She states that she takes 27 units of Lantus at night and 20 units of Humalog twice a day. States she has not been checking her sugar lately due to issues with her machine and she is to see her primary care doctor to get a new one. - Related Data Home Medications Medication Instructions Recorded Confirmed Last Taken Elviteg/Cob/Emtri/Tenofo Disop 1 each PO DAILY 09/26/16 09/26/16 09/25/16 [Stribild Tablet] Previous Rx's Medication Instructions Recorded Last Taken Type amLODIPine [Norvasc] 20 mg PO DAILY #30 tablet 09/28/16 Unknown Rx hydroCHLOROthiazide [HCTZ] 25 mg PO QDAY #30 tablet 09/28/16 Unknown Rx Allergies Allergy/AdvReac Type Severity Reaction Status Date / Time Penicillins Allergy Itching Verified 06/11/16 19:50 ED Review of Systems ROS: Stated complaint: VOMITING/KOFFI/POSSIBLY Other details as noted in HPI Comment: All other systems reviewed and negative ED Past Medical Hx - Past Medical History Previous Medical History?: Yes Hx Hypertension: Yes Hx Congestive Heart Failure: Yes Hx Diabetes: Yes Hx Psychiatric Treatment: Yes (bi-polar) Hx Asthma: Yes Hx HIV: Yes - Surgical History Past Surgical History?: Yes Additional Surgical History: C-sections X's 3 - Social History Smoking Status: Never Smoker Substance Use Type: None - Medications Home Medications: Home Medications Medication Instructions Recorded Confirmed Last Taken Type Elviteg/Cob/Emtri/Tenofo Disop 1 each PO DAILY 09/26/16 09/26/16 09/25/16 History [Stribild Tablet] amLODIPine [Norvasc] 20 mg PO DAILY #30 tablet 09/28/16 Unknown Rx hydroCHLOROthiazide [HCTZ] 25 mg PO QDAY #30 tablet 09/28/16 Unknown Rx ED Physical Exam - General Limitations: No Limitations General appearance: alert, in no apparent distress - Head Head exam: Present: atraumatic, normocephalic - Eye Eye exam: Present: normal appearance - ENT ENT exam: Present: mucous membranes moist - Respiratory Respiratory exam: Present: normal lung sounds bilaterally. Absent: respiratory distress, wheezes, rales, rhonchi, stridor, chest wall tenderness, accessory muscle use, decreased breath sounds, prolonged expiratory - Cardiovascular Cardiovascular Exam: Present: regular rate, normal rhythm, normal heart sounds. Absent: systolic murmur, diastolic murmur, rubs, gallop - GI/Abdominal GI/Abdominal exam: Present: soft, normal bowel sounds. Absent: distended, tenderness, guarding, rebound, rigid - Neurological Exam Neurological exam: Present: alert, oriented X3 - Psychiatric Psychiatric exam: Present: normal affect, normal mood - Skin Skin exam: Present: warm, dry, intact ED Course Vital Signs 01/20/19 01/20/19 15:16 18:42 Temperature 97.7 F 98.4 F Pulse Rate 55 L 55 L Respiratory 22 18 Rate Blood Pressure 115/62 107/48 O2 Sat by Pulse 96 95 Oximetry ED Medical Decision Making - Lab Data Result diagrams: 01/20/19 15:25 01/20/19 15:25 Lab Results 01/20/19 01/20/19 01/20/19 Range/Units 15:25 15:25 15:42 WBC 7.0 (4.5-11.0) K/mm3 RBC 4.59 (3.65-5.03) M/mm3 Hgb 12.7 (10.1-14.3) gm/dl Hct 38.7 (30.3-42.9) % MCV 85 (79-97) fl MCH 28 (28-32) pg MCHC 33 (30-34) % RDW 15.1 (13.2-15.2) % Plt Count 336 (140-440) K/mm3 Lymph % (Auto) 31.5 (13.4-35.0) % [place] % (Auto) 8.3 H (0.0-7.3) % Eos % (Auto) 2.8 (0.0-4.3) % Baso % (Auto) 0.6 (0.0-1.8) % Lymph # 2.2 (1.2-5.4) K/mm3 [place] # 0.6 (0.0-0.8) K/mm3 Eos # 0.2 (0.0-0.4) K/mm3 Baso # 0.0 (0.0-0.1) K/mm3 Seg Neutrophils % 56.8 (40.0-70.0) % Seg Neutrophils # 4.0 (1.8-7.7) K/mm3 Sodium 136 L (137-145) mmol/L Potassium 3.1 L (3.6-5.0) mmol/L Chloride 93.7 L (98-107) mmol/L Carbon Dioxide 28 (22-30) mmol/L Anion Gap 17 mmol/L BUN 9 (7-17) mg/dL Creatinine 0.9 (0.7-1.2) mg/dL Estimated GFR > 60 ml/min BUN/Creatinine Ratio 10 % Glucose 498 H (65-100) mg/dL POC Glucose (70-105) Calcium 9.1 (8.4-10.2) mg/dL Total Bilirubin 0.20 (0.1-1.2) mg/dL AST 13 (5-40) units/L ALT 18 (7-56) units/L Alkaline Phosphatase 144 H (35-129) units/L Total Protein 7.4 (6.3-8.2) g/dL Albumin 3.7 L (3.9-5) g/dL Albumin/Globulin Ratio 1.0 % Lipase 10 L (13-60) units/L HCG, Quant (0-4) mIU/mL Urine Color Yellow (Yellow) Urine Turbidity Clear (Clear) Urine pH 6.0 (5.0-7.0) Ur Specific [place] 1.030 (1.003-1.030) Urine Protein <15 mg/dl (Negative) mg/dL Urine Glucose (UA) >=500 (Negative) mg/dL Urine Ketones Neg (Negative) mg/dL Urine Blood Neg (Negative) Urine Nitrite Neg (Negative) Urine Bilirubin Neg (Negative) Urine Urobilinogen < 2.0 (<2.0) mg/dL Ur Leukocyte Esterase Neg (Negative) Urine WBC (Auto) < 1.0 (0.0-6.0) /HPF Urine RBC (Auto) 2.0 (0.0-6.0) /HPF U Epithel Cells (Auto) 5.0 (0-13.0) /HPF 01/20/19 01/20/19 Range/Units 18:17 18:53 WBC (4.5-11.0) K/mm3 RBC (3.65-5.03) M/mm3 Hgb (10.1-14.3) gm/dl Hct (30.3-42.9) % MCV (79-97) fl MCH (28-32) pg MCHC (30-34) % RDW (13.2-15.2) % Plt Count (140-440) K/mm3 Lymph % (Auto) (13.4-35.0) % [place] % (Auto) (0.0-7.3) % Eos % (Auto) (0.0-4.3) % Baso % (Auto) (0.0-1.8) % Lymph # (1.2-5.4) K/mm3 [place] # (0.0-0.8) K/mm3 Eos # (0.0-0.4) K/mm3 Baso # (0.0-0.1) K/mm3 Seg Neutrophils % (40.0-70.0) % Seg Neutrophils # (1.8-7.7) K/mm3 Sodium (137-145) mmol/L Potassium (3.6-5.0) mmol/L Chloride (98-107) mmol/L Carbon Dioxide (22-30) mmol/L Anion Gap mmol/L BUN (7-17) mg/dL Creatinine (0.7-1.2) mg/dL Estimated GFR ml/min BUN/Creatinine Ratio % Glucose (65-100) mg/dL POC Glucose 335 H (70-105) Calcium (8.4-10.2) mg/dL Total Bilirubin (0.1-1.2) mg/dL AST (5-40) units/L ALT (7-56) units/L Alkaline Phosphatase (35-129) units/L Total Protein (6.3-8.2) g/dL Albumin (3.9-5) g/dL Albumin/Globulin Ratio % Lipase (13-60) units/L HCG, Quant < 2 (0-4) mIU/mL Urine Color (Yellow) Urine Turbidity (Clear) Urine pH (5.0-7.0) Ur Specific [place] (1.003-1.030) Urine Protein (Negative) mg/dL Urine Glucose (UA) (Negative) mg/dL Urine Ketones (Negative) mg/dL Urine Blood (Negative) Urine Nitrite (Negative) Urine Bilirubin (Negative) Urine Urobilinogen (<2.0) mg/dL Ur Leukocyte Esterase (Negative) Urine WBC (Auto) (0.0-6.0) /HPF Urine RBC (Auto) (0.0-6.0) /HPF U Epithel Cells (Auto) (0-13.0) /HPF - Radiology Data Radiology results: report reviewed CHEST 2 VIEWS INDICATION: SOB. COMPARISON: 04/13/2017. FINDINGS: Support devices: None. Heart: Within normal limits. Lungs/Pleura: No acute air space or interstitial disease. No significant pleural effusion. IMPRESSION: No acute findings. Signer Name: Mike Sherman MD Signed: 01/20/2019 7:35 PM Workstation Name: [id number] Transcribed By: ES Dictated By: Mike Sherman MD Electronically Authenticated By: Mike Sherman MD Signed Date/Time: 01/20/191934 - Medical Decision Making Patient is a 48-year-old female presents to the emergency room with complaints of nausea and vomiting that began a week ago. She has approximately 2 episodes of emesis per day. The patient states she had diarrhea a few days ago but it has since resolved. She states she is concerned that she is . She denies any abdominal pain, urinary symptoms, fever, chest pain. Sensation states she has chronic exertional shortness of breath which she states feels like it is at baseline. States her last menstrual cycle was December 12. past medical history of HIV, high blood pressure, diabetes, asthma, CHF. She states that she takes 27 units of Lantus at night and 20 units of Humalog twice a day. States she has not been checking her sugar lately due to issues with her machine and she is to see her primary care doctor to get a new one. vitals are stable. on exam: no abd tenderness, breath sounds are clear bilaterally, with no w/r/r. labs significant for blood glucose of 498, potassium 3.1. UA WNL, no ketones. hcg quant is negative. CXR with no acute process. repeat blood glucose was 335. ordered for pt to have bentyl, kdur, insulin, zofran, and 500 of normal saline. appears that pt only received kdur and insulin. pt eloped from the e mergency department prior to all diagnostic tests being completed and prior to reevaluation of blood glucose and prior to receiving all medications. Critical care attestation.: If time is entered above; I have spent that time in minutes in the direct care of this critically ill patient, excluding procedure time. ED Disposition Clinical Impression: Hyperglycemia, Chronic shortness of breath, Hypokalemia Nausea and vomiting Qualifiers: Vomiting type: unspecified Vomiting Intractability: unspecified Qualified Code(s): R11.2 - Nausea with vomiting, unspecified Disposition: ELOPED Is pt being admited?: No Does the pt Need Aspirin: No Condition: Undetermined Referrals: PRIMARY CARE, [Primary Care Provider] - 2-3 Days
--- NOTE | 2019-01-20 19:40 | XRay Report ---
CHEST 2 VIEWS INDICATION: SOB. COMPARISON: 04/13/2017. FINDINGS: Support devices: None. Heart: Within normal limits. Lungs/Pleura: No acute air space or interstitial disease. No significant pleural effusion. IMPRESSION: No acute findings. Signer Name: Mike Sherman MD Signed: 01/20/2019 7:35 PM Workstation Name: [email or web address]
== END 2019-01-20 20:00 | disposition left against medical advice (07) ==
LOC: ED 14:39
DX: E11.65 Type 2 diabetes mellitus with hyperglycemia (principal); R06.02 Shortness of breath; R11.2 Nausea with vomiting, unspecified; E87.6 Hypokalemia; I11.0 Hypertensive heart disease with heart failure; I50.9 Heart failure, unspecified; F31.9 Bipolar disorder, unspecified; J45.909 Unspecified asthma, uncomplicated; Z21 Asymptomatic human immunodeficiency virus [HIV] infection status; Z79.899 Other long term (current) drug therapy; Z88.0 Allergy status to penicillin
CPT/HCPCS: 36415; 71046; 80053; 81001; 82962; 83690; 84702; 85025; 96372; 99284; J0500; J2405; J7040; J1815

== ENCOUNTER 2020-12-31 11:44 | Emergency (ER) | payer MEDICAID ==
[2020-12-31 12:46] VITALS: BP 145/80
--- NOTE | 2020-12-31 15:16 | Emergency Department Report ---
Chief Complaint: Hyperglycemia Stated Complaint: HIGH BLOOD SUGAR Time Seen by Provider: 12/31/20 15:15 - Exam Vital Signs: Vital Signs 12/31/20 12:42 Temperature 98.0 F Pulse Rate 82 Respiratory 20 Rate Blood Pressure 145/80 O2 Sat by Pulse 98 Oximetry MSE screening note: Focused history and physical exam performed. Due to findings the following was ordered: ED Disposition for MSE Condition: Stable
--- NOTE | 2020-12-31 15:46 | Emergency Department Report ---
ED General Adult HPI - General Chief complaint: Hyperglycemia Stated complaint: HIGH BLOOD SUGAR Time Seen by Provider: 12/31/20 15:15 Source: patient Mode of arrival: Ambulatory Limitations: No Limitations - History of Present Illness Initial comments: There is a pleasant 50-year-old female presents the emergency department chief complaint of hyperglycemia. Patient reports she had routine labs drawn by her primary care doctor and she was called today and they told her her blood glucose was over 500. She had stopped taking her insulin because the needles hurt. She states she is feeling well otherwise. She denies any associated fever, chills, night sweats, headache, dizziness, blurry vision, nausea, vomit, diarrhea, chest pain, shortness of breath, weakness or any other associated symptoms. - Related Data Home Medications Medication Instructions Recorded Confirmed Last Taken Elviteg/Cob/Emtri/Tenofo Disop 1 each PO DAILY 09/26/16 09/26/16 09/25/16 [Stribild Tablet] Previous Rx's Medication Instructions Recorded Last Taken Type amLODIPine 20 mg PO DAILY #30 tablet 09/28/16 Unknown Rx hydroCHLOROthiazide [HCTZ] 25 mg PO QDAY #30 tablet 09/28/16 Unknown Rx Allergies Allergy/AdvReac Type Severity Reaction Status Date / Time Penicillins Allergy Itching Verified 06/11/16 19:50 ED Review of Systems ROS: Stated complaint: HIGH BLOOD SUGAR Other details as noted in HPI Comment: All other systems reviewed and negative Constitutional: denies: chills, fever Eyes: denies: eye pain, eye discharge, vision change ENT: denies: ear pain, throat pain Respiratory: denies: cough, shortness of breath, wheezing Cardiovascular: denies: chest pain, palpitations Endocrine: no symptoms reported Gastrointestinal: denies: abdominal pain, nausea, diarrhea Genitourinary: denies: urgency, dysuria, discharge Musculoskeletal: denies: back pain, joint swelling, arthralgia Skin: denies: rash, lesions Neurological: denies: headache, weakness, paresthesias Psychiatric: denies: anxiety, depression Hematological/Lymphatic: denies: easy bleeding, easy bruising ED Past Medical Hx - Past Medical History Previous Medical History?: Yes Hx Hypertension: Yes Hx Congestive Heart Failure: Yes Hx Diabetes: Yes Hx Psychiatric Treatment: Yes (bi-polar) Hx Asthma: Yes Hx HIV: Yes - Surgical History Past Surgical History?: Yes Additional Surgical History: C-sections X's 3 - Social History Smoking Status: Never Smoker Substance Use Type: None - Medications Home Medications: Home Medications Medication Instructions Recorded Confirmed Last Taken Type Elviteg/Cob/Emtri/Tenofo Disop 1 each PO DAILY 09/26/16 09/26/16 09/25/16 History [Stribild Tablet] amLODIPine 20 mg PO DAILY #30 tablet 09/28/16 Unknown Rx hydroCHLOROthiazide [HCTZ] 25 mg PO QDAY #30 tablet 09/28/16 Unknown Rx ED Physical Exam - General Limitations: No Limitations General appearance: alert, in no apparent distress - Head Head exam: Present: atraumatic, normocephalic - Eye Eye exam: Present: normal appearance, PERRL, EOMI Pupils: Present: normal accommodation - ENT ENT exam: Present: normal exam, normal orophraynx, mucous membranes moist - Neck Neck exam: Present: normal inspection, full ROM. Absent: tenderness, meningismus - Respiratory Respiratory exam: Present: normal lung sounds bilaterally. Absent: respiratory distress, wheezes, rales, rhonchi, stridor - Cardiovascular Cardiovascular Exam: Present: regular rate, normal rhythm, normal heart sounds. Absent: systolic murmur, diastolic murmur, rubs, gallop - GI/Abdominal GI/Abdominal exam: Present: soft, normal bowel sounds. Absent: distended, tenderness, guarding, rebound, rigid - Extremities Exam Extremities exam: Present: normal inspection, full ROM, normal capillary refill. Absent: tenderness - Back Exam Back exam: Present: normal inspection, full ROM. Absent: tenderness, CVA tenderness (R), CVA tenderness (L) - Neurological Exam Neurological exam: Present: alert, oriented X3, CN II-XII intact, normal gait - Psychiatric Psychiatric exam: Present: normal affect, normal mood - Skin Skin exam: Present: warm, dry, intact, normal color. Absent: rash ED Course Vital Signs 12/31/20 12:42 Temperature 98.0 F Pulse Rate 82 Respiratory 20 Rate Blood Pressure 145/80 O2 Sat by Pulse 98 Oximetry - Reevaluation(s) Reevaluation #1: 12/31/20 17:49 I called the patient in the waiting room to reevaluate and there was no answer. I the patient may have eloped from the emergency department. ED Medical Decision Making - Lab Data Result diagrams: 12/31/20 15:04 12/31/20 15:04 Lab Results 12/31/20 12/31/20 12/31/20 Range/Units 12:44 15:04 15:04 WBC 7.5 (4.5-11.0) K/mm3 RBC 5.60 H (3.65-5.03) M/mm3 Hgb 15.2 H (10.1-14.3) gm/dl Hct 47.2 H (30.3-42.9) % MCV 84 (79-97) fl MCH 27 L (28-32) pg MCHC 32 (30-34) % RDW 15.4 H (13.2-15.2) % Plt Count 339 (140-440) K/mm3 Lymph % (Auto) 26.6 (13.4-35.0) % George % (Auto) 8.2 H (0.0-7.3) % Eos % (Auto) 1.8 (0.0-4.3) % Baso % (Auto) 0.7 (0.0-1.8) % Lymph # (Auto) 2.0 (1.2-5.4) K/mm3 George # (Auto) 0.6 (0.0-0.8) K/mm3 Eos # (Auto) 0.1 (0.0-0.4) K/mm3 Baso # (Auto) 0.1 (0.0-0.1) K/mm3 Seg Neutrophils % 62.7 (40.0-70.0) % Seg Neutrophils # 4.7 (1.8-7.7) K/mm3 Sodium 136 L (137-145) mmol/L Potassium 4.0 (3.6-5.0) mmol/L Chloride 98.1 (98-107) mmol/L Carbon Dioxide 25 (22-30) mmol/L Anion Gap 17 mmol/L BUN 10 (7-17) mg/dL Creatinine 0.7 (0.6-1.2) mg/dL Estimated GFR > 60 ml/min BUN/Creatinine Ratio 14 % Glucose 311 H (65-100) mg/dL POC Glucose 365 H (70-105) mg/dL Calcium 9.9 (8.4-10.2) mg/dL Total Bilirubin 0.30 (0.1-1.2) mg/dL AST 8 (5-40) units/L ALT 8 (7-56) units/L Alkaline Phosphatase 126 (35-129) units/L Total Protein 7.5 (6.3-8.2) g/dL Albumin 3.6 L (3.9-5) g/dL Albumin/Globulin Ratio 0.9 % - Medical Decision Making Patient is well-appearing and in no distress. Lab work showed a normal bicarb and no metabolic acidosis. I have low suspicion for DKA at this time but I did order a venous pH however prior to obtaining this lab the patient eloped from the emergency department. I was unable to reevaluate the patient - Differential Diagnosis DKA, HHS, hyperglycemia Critical care attestation.: If time is entered above; I have spent that time in minutes in the direct care of this critically ill patient, excluding procedure time. ED Disposition Clinical Impression: Hyperglycemia Disposition: 07 LEFT AWOL/ELOPED Is pt being admited?: No Condition: Undetermined Time of Disposition: 19:13
[2020-12-31 15:50] LABS: Basophils # (Auto) 0.1 K/mm3 (0.0-0.1); Basophils % (Auto) 0.7 % (0.0-1.8); Eosinophils # (Auto) 0.1 K/mm3 (0.0-0.4); Eosinophils % (Auto) 1.8 % (0.0-4.3); Hematocrit 47.2 % (30.3-42.9); Hemoglobin 15.2 gm/dl (10.1-14.3); Lymphocytes % (Auto) 26.6 % (13.4-35.0); Mean Corpuscular HGB Conc 32 % (30-34); Mean Corpuscular Volume 84 fl (79-97); Monocytes # (Auto) 0.6 K/mm3 (0.0-0.8); Monocytes % (Auto) 8.2 % (0.0-7.3); Platelet Count 339 K/mm3 (140-440); Red Cell Distribution Width 15.4 % (13.2-15.2)
[2020-12-31 15:56] LABS: Alanine Aminotransferase 8 units/L (7-56); Albumin 3.6 g/dL (3.9-5); Blood Urea Nitrogen 10 mg/dL (7-17); Calcium 9.9 mg/dL (8.4-10.2); Hemolysis Index 24
[2020-12-31 15:59] LABS: BUN/Creatinine Ratio 14
== END 2020-12-31 17:49 | disposition left against medical advice (07) ==
LOC: ED 11:44
DX: E11.65 Type 2 diabetes mellitus with hyperglycemia (principal); I11.0 Hypertensive heart disease with heart failure; F31.9 Bipolar disorder, unspecified; J45.909 Unspecified asthma, uncomplicated; B20 Human immunodeficiency virus [HIV] disease; Z98.890 Other specified postprocedural states; Z88.0 Allergy status to penicillin
CPT/HCPCS: 36415; 80053; 82962; 85025; 99283

== ENCOUNTER 2022-01-04 12:06 | Emergency (ER) | payer MEDICAID ==
--- NOTE | 2022-01-04 12:53 | Emergency Department Report ---
ED Psych HPI - General Chief Complaint: Psych Stated Complaint: SUICIDAL IDEATIONS Time Seen by Provider: 01/04/22 12:51 Source: patient, EMS Mode of arrival: Ambulatory - History of Present Illness Initial Comments: Patient is a 51-year-old female presenting to ED with complaint of suicidal ideations beginning yesterday. States she has been off her psychiatric meds for the past 2 years. - Related Data Home Medications Medication Instructions Recorded Confirmed Last Taken Elviteg/Cob/Emtri/Tenofo Disop 1 each PO DAILY 09/26/16 09/26/16 09/25/16 [Stribild Tablet] Previous Rx's Medication Instructions Recorded Last Taken Type amLODIPine 20 mg PO DAILY #30 tablet 09/28/16 Unknown Rx hydroCHLOROthiazide [HCTZ] 25 mg PO QDAY #30 tablet 09/28/16 Unknown Rx Allergies Allergy/AdvReac Type Severity Reaction Status Date / Time Penicillins Allergy Itching Verified 01/04/22 12:14 ED Review of Systems ROS: Stated complaint: SUICIDAL IDEATIONS Other details as noted in HPI Constitutional: denies: chills, fever Respiratory: denies: cough, shortness of breath, wheezing Cardiovascular: denies: chest pain, palpitations Gastrointestinal: denies: abdominal pain, nausea, diarrhea Genitourinary: denies: urgency, dysuria, discharge Musculoskeletal: denies: back pain, joint swelling, arthralgia Skin: denies: rash, lesions Neurological: denies: headache, weakness, paresthesias Psychiatric: suicidal thoughts. denies: auditory hallucinations, visual hallucinations ED Past Medical Hx - Past Medical History Hx Hypertension: Yes Hx Congestive Heart Failure: Yes Hx Diabetes: Yes Hx Psychiatric Treatment: Yes (bi-polar) Hx Asthma: Yes Hx HIV: Yes - Surgical History Additional Surgical History: C-sections X's 3 - Social History Smoking Status: Never Smoker Substance Use Type: None - Medications Home Medications: Home Medications Medication Instructions Recorded Confirmed Last Taken Type Elviteg/Cob/Emtri/Tenofo Disop 1 each PO DAILY 09/26/16 09/26/16 09/25/16 History [Stribild Tablet] amLODIPine 20 mg PO DAILY #30 tablet 09/28/16 Unknown Rx hydroCHLOROthiazide [HCTZ] 25 mg PO QDAY #30 tablet 09/28/16 Unknown Rx ED Physical Exam - General Limitations: No Limitations General appearance: alert, in no apparent distress, obese - Head Head exam: Present: atraumatic, normocephalic - Respiratory Respiratory exam: Present: normal lung sounds bilaterally. Absent: respiratory distress - Cardiovascular Cardiovascular Exam: Present: regular rate, normal rhythm, normal heart sounds - GI/Abdominal GI/Abdominal exam: Present: soft. Absent: distended, tenderness - Rectal Rectal exam: Present: deferred - Neurological Exam Neurological exam: Present: alert, oriented X3 - Psychiatric Psychiatric exam: Present: suicidal ideation - Skin Skin exam: Present: warm, dry, intact, normal color ED Course Vital Signs 01/04/22 01/04/22 12:12 13:13 Temperature 97.5 F L Pulse Rate 63 Respiratory 14 Rate Blood Pressure 142/87 [Left] O2 Sat by Pulse 100 99 Oximetry ED Medical Decision Making - Lab Data Result diagrams: 01/04/22 13:02 01/04/22 13:02 - Medical Decision Making Patient presenting to ED with complaint of suicidal ideations. 1013 filed. Labs obtained and are grossly unremarkable except for hyperglycemia 421. IV fluids and insulin ordered. Will obtain mental health assessment once medically cleared. Critical care attestation.: If time is entered above; I have spent that time in minutes in the direct care of this critically ill patient, excluding procedure time. ED Disposition Clinical Impression: Suicidal ideation, Hyperglycemia due to type 2 diabetes mellitus Disposition: 30 STILL A PATIENT Is pt being admited?: No Condition: Stable Instructions: Diabetes Mellitus Type 2 in Adults (ED)
[2022-01-04 13:27] LABS: Basophils # (Auto) 0.1 K/mm3 (0.0-0.1); Basophils % (Auto) 1.1 % (0.0-1.8); Eosinophils # (Auto) 0.2 K/mm3 (0.0-0.4); Eosinophils % (Auto) 2.9 % (0.0-4.3); Hemoglobin 13.1 gm/dl (10.1-14.3); Lymphocytes # (Auto) 1.6 K/mm3 (1.2-5.4); Lymphocytes % (Auto) 22.3 % (13.4-35.0); Mean Corpuscular HGB Conc 33 % (30-34); Mean Corpuscular Volume 83 fl (79-97); Monocytes # (Auto) 0.5 K/mm3 (0.0-0.8); Monocytes % (Auto) 6.4 % (0.0-7.3); Platelet Count 314 K/mm3 (140-440); Red Blood Count 4.81 M/mm3 (3.65-5.03); Red Cell Distribution Width 14.9 % (13.2-15.2)
[2022-01-04 13:44] LABS: Alanine Aminotransferase 10 units/L (7-56); Albumin 3.8 g/dL (3.9-5); BUN/Creatinine Ratio 14; Blood Urea Nitrogen 11 mg/dL (7-17); Calcium 9.2 mg/dL (8.4-10.2); Hemolysis Index 5
[2022-01-04] MEDS ORDERED: INSULIN REGULAR, HUMAN 100 UNITS/1 ML IV ONE ×2 (18:52→20:31)
[2022-01-04] MEDS ORDERED: SODIUM CHLORIDE 0.9% 1000 ML 1,000 ML IV ONE (18:52)
[2022-01-05] MEDS ORDERED: INSULIN REGULAR, HUMAN 100 UNITS/1 ML ONE (08:36)
[2022-01-05] MEDS ORDERED: SODIUM CHLORIDE 0.9% 1000 ML 1,000 ML ONE (08:36)
--- NOTE | 2022-01-05 10:53 | Consultation ---
History of Present Illness - Reason for Consult Consult date: 01/05/22 Reason for consult: mental health evaluation - History of Present Psychiatric Illness The patient is a 51 year old female with history of bipolar and schizophrenia who presents at the ED with suicidal ideation. The patient was seen today. She is calm, alert and oriented x4. She reports ongoing depression x2 months and also complaint of insomnia x 4 days. The patient reports noncompliant with psyc hotropic medications; she last received Invega monthly inj about 2 years ago. The patient states she used crack cocaine 4 nights ago to help her with sleep which was not effective. She denies any current suicidal/homicidal ideation and denies hallucinations. PAST PSYCHIATRIC HISTORY Diagnoses:Bipolar, schizophrenia Suicide attempts or Self-harm behavior: Yes Prior psychiatric hospitalizations: Yes Substance Abuse history:crack Previous psychiatric medications tried:Invega Outpatient treatment: Denies PAST MEDICAL HISTORY: None reported Family Psychiatric History: None reported or documented SOCIAL HISTORY Marital Status: Living Arrangements: Lives with Employment Status: [employer] Access to guns/weapons: Denies Education: 9th grade History of Abuse: Denies Legal History: None reported REVIEW OF SYSTEMS Constitutional: Negative for weight loss ENT: Negative for stridor Respiratory: Negative for cough or hemoptysis All other systems reviewed and are negative MENTAL STATUS EXAMINATION General Appearance and Behavior: Age appropriate, good hygiene, Cooperation: cooperative Psychomotor Behavior: Psychomotor normal, Mood: Depressed Affect and affective range: congruent with stated mood Thought Process: Goal directed Thought Content: Reality oriented Speech: normal rate and volume Suicidal Ideation: Denies Homicidal Ideation: Denies Hallucinations: Denies Delusions: None elicited Impulse Control: Normal Insight and Judgment: Limited Memory: Limited Attention:Attentive Orientation: Aox3 Assessment and Plan (1) Bipolar disorder (2) Treatment Plan Continue home medications Risperidone 1mg po BID Trazodone 50mg po qhs PRN The patient is to get first dose of meds prior to leaving. Benefits and possible SE were explained to patient. She verbalizes understanding. Risks, benefits and alternatives of medications discussed with the patient, questions answered and consent obtained from patient. PSYCHOTHERAPY: Supportive psychotherapy provided MEDICAL: Per primary team DELIRIUM PRECAUTIONS: Please re-orient patient frequently, keep lights on during the day, and minimize benzodiazepines and opiates as these medications could worsen patient's confusion. ALLIED HEALTH TEACHER: Defer to primary DISPOSITION: Do not Recommend acute inpatient psychiatric hospitalization at this time. Paper Rewinder Operator will provide patient with psychiatric outpatient resources. FOLLOW-UP: Will sign off. Thank you for the consult. Please contact with any questions and/or concerns Case discussed with Dr. Herzog who agrees with current disposition Medications and Allergies Medications and Allergies Allergies Allergy/AdvReac Type Severity Reaction Status Date / Time Penicillins Allergy Itching Verified 01/04/22 12:14 Home Medications Medication Instructions Recorded Confirmed Last Taken Type Elviteg/Cob/Emtri/Tenofo Disop 1 each PO DAILY 09/26/16 09/26/16 09/25/16 History [Stribild Tablet] amLODIPine 20 mg PO DAILY #30 tablet 09/28/16 Unknown Rx hydroCHLOROthiazide [HCTZ] 25 mg PO QDAY #30 tablet 09/28/16 Unknown Rx risperiDONE [RisperDAL] 1 mg PO BID 30 Days #60 01/05/22 Unknown Rx traZODone [Desyrel] 50 mg PO QHS PRN 30 Days #30 tab 01/05/22 Unknown Rx Mental Status Exam - Vital signs Last Vital Signs Temp 97.5 F L 01/04/22 12:12 Pulse 63 01/04/22 12:12 Resp 14 01/04/22 12:12 BP 142/87 01/04/22 12:12 Pulse Ox 99 01/04/22 13:13 Results Result Diagrams: 01/04/22 13:02 01/04/22 13:02 Abnormal lab results 01/04/22 01/04/22 01/04/22 Range/Units 13:02 13:02 13:02 MCH 27 L (28-32) pg Sodium 135 L (137-145) mmol/L Glucose 421 H (65-100) mg/dL POC Glucose (70-105) mg/dL Alkaline Phosphatase 143 H (35-129) units/L Albumin 3.8 L (3.9-5) g/dL Salicylates < 0.3 L (2.8-20.0) mg/dL Acetaminophen (10.0-30.0) ug/mL 01/04/22 01/04/22 Range/Units 13:02 20:30 MCH (28-32) pg Sodium (137-145) mmol/L Glucose (65-100) mg/dL POC Glucose 356 H (70-105) mg/dL Alkaline Phosphatase (35-129) units/L Albumin (3.9-5) g/dL Salicylates (2.8-20.0) mg/dL Acetaminophen 5.0 L (10.0-30.0) ug/mL All other labs normal.
[2022-01-05] MEDS ORDERED: INSULIN REGULAR, HUMAN 100 UNITS/1 ML IV ONE (11:51)
[2022-01-05 13:51] VITALS: BP 136/82
== END 2022-01-05 12:30 | disposition still patient (30) ==
LOC: ED 12:06 → EEVIPCON 12:06 → ED 01-05 13:50
DX: R45.851 Suicidal ideations (principal); E11.65 Type 2 diabetes mellitus with hyperglycemia; I10 Essential (primary) hypertension; E11.9 Type 2 diabetes mellitus without complications; J45.909 Unspecified asthma, uncomplicated
CPT/HCPCS: 36415; 80053; 82962; 84443; 85025; 96361; 96374; 96376; 99284; J7030; 80320; 96375; Q9967; G0480; J1815